=== PATIENT | female | born 1930 | race Asian ===

== ENCOUNTER 2016-10-19 02:46 | Inpatient (IN) | payer MEDICARE, MEDICAID ==
[~2016-10-19] VITALS: Ht 152.4 cm; Wt 61.3 kg
[2016-10-19] MEDS ORDERED: FEXO1TAB25 PO (03:07)
[2016-10-19] MEDS ORDERED: LISI-170 PO (03:07)
[2016-10-19] MEDS ORDERED: ATOR40TA78 PO (03:07)
[2016-10-19] MEDS ORDERED: INSU100V5 SQ-INSULIN (03:07)
[2016-10-19] MEDS ORDERED: CHOL400C PO (03:07)
[2016-10-19] MEDS ORDERED: ENALAPRILAT 1.25 MG/ML, 2ML ONE (03:15)
[2016-10-19 03:26] LABS: HEMOGLOBIN 12.7 g/dL (11.7-16.4)
[2016-10-19] MEDS ORDERED: ENALAPRILAT 1.25 MG/ML, 2ML IV ONE (03:30)
[2016-10-19 03:38] LABS: ASPARTATE AMINO TRANSFERASE 21 U/L (15-37); BLOOD UREA NITROGEN 20 mg/dL (7-18)
[2016-10-19 03:39] LABS: DAU SCREEN DISCLAIMER
[2016-10-19 03:44] LABS: IS PT STATUS REG ER OR PRE ER? YES
[2016-10-19] MEDS ORDERED: ACETAMINOPHEN 325 MG TABLET PO PRN (04:30)
[2016-10-19] MEDS ORDERED: ENALAPRILAT 1.25 MG/ML, 2ML IV PRN (04:30)
[2016-10-19] MEDS ORDERED: CEFTRIAXONE PMX 1GM/50ML 50 ML ONE (04:37)
[2016-10-19] MEDS ORDERED: NS + 20MEQ KCL 0 ML IV ONE (04:37)
[2016-10-19] MEDS ORDERED: NS + 40MEQ KCL 1,000 ML IV ONE (04:39)
[2016-10-19] MEDS: CEFTRIAXONE PMX 1GM/50ML 50 ML IV SCH (04:44)
[2016-10-19] MEDS: NS + 40MEQ KCL 1,000 ML IV SCH ×2 (04:48→20:45)
[2016-10-19 05:16] VITALS: BP 172/96
[2016-10-19] MEDS: ENOXAPARIN 40 MG/0.4 ML SQ SCH (05:56)
[2016-10-19] MEDS ORDERED: DEXTROSE 50%, 50ML SYRINGE IVPush PRN (06:00)
[2016-10-19] MEDS ORDERED: DEXTROSE 50%, 50ML SYRINGE IVPush ONE (06:00)
[2016-10-19] MEDS ORDERED: GLUCAGON 1 MG IM PRN (06:00)
[2016-10-19] MEDS ORDERED: DEXTROSE 4 GM TAB.CHEW PO PRN (06:00)
[2016-10-19 06:53] VITALS: BP 129/77
[2016-10-19] MEDS: SODIUM CHLORIDE FLUSH 10ML SYR IVF SCH ×2 (09:00→20:37)
[2016-10-19 09:29] LABS: IS PT STATUS REG ER OR PRE ER? NO
[2016-10-19] MEDS ORDERED: MAGNESIUM SULFATE PMX 4GM/100M 100 ML IV ONE (10:00)
[2016-10-19] MEDS ORDERED: GLIP5TAB10 PO (11:07)
[2016-10-19] MEDS ORDERED: TERI2.4P SQ (11:07)
[2016-10-19] MEDS ORDERED: ALBU0.63 NEB (11:07)
[2016-10-19] MEDS ORDERED: ATEN100T PO (11:07)
[2016-10-19] MEDS ORDERED: OXYB5TAB7 PO (11:07)
[2016-10-19] MEDS ORDERED: ACET325T26 PO (11:07)
[2016-10-19] MEDS ORDERED: METF850T2 PO (11:07)
[2016-10-19] MEDS: INSULIN ASPART 100 UNITS/ML, PEN SQ-INSULIN SCH ×3 (11:40→20:37)
[2016-10-19 12:33] VITALS: BP 159/82
[2016-10-19] MEDS: LISINOPRIL 20 MG TABLET PO SCH (12:34)
[2016-10-19 13:44] VITALS: BP 121/66
[2016-10-19 16:21] VITALS: BP 132/70
[2016-10-19] MEDS ORDERED: ALBUTEROL SULFATE 2.5 MG/3 ML NPPB PRN (17:00)
[2016-10-19 19:02] VITALS: BP 168/93
[2016-10-19] MEDS: ATORVASTATIN 40 MG TABLET PO SCH (20:37)
[2016-10-20 01:02] VITALS: BP 156/88
[2016-10-20] MEDS: ENOXAPARIN 40 MG/0.4 ML SQ SCH (04:25)
[2016-10-20] MEDS: CEFTRIAXONE PMX 1GM/50ML 50 ML IV SCH (04:25)
[2016-10-20 05:22] LABS: HEMOGLOBIN 11.7 g/dL (11.7-16.4)
[2016-10-20 05:29] LABS: BLOOD UREA NITROGEN 20 mg/dL (7-18)
[2016-10-20] MEDS: ATENOLOL 100 MG TABLET PO SCH (06:00)
[2016-10-20 07:42] VITALS: BP 134/77
[2016-10-20] MEDS: INSULIN ASPART 100 UNITS/ML, PEN SQ-INSULIN SCH ×4 (07:59→20:40)
[2016-10-20] MEDS: SODIUM CHLORIDE FLUSH 10ML SYR IVF SCH ×2 (08:14→20:38)
[2016-10-20] MEDS: LISINOPRIL 20 MG TABLET PO SCH (08:14)
[2016-10-20] MEDS: NS + 40MEQ KCL 1,000 ML IV SCH (10:47)
[2016-10-20 13:07] VITALS: BP 152/79
[2016-10-20 20:20] VITALS: BP 153/72
[2016-10-20] MEDS: ATORVASTATIN 40 MG TABLET PO SCH (20:39)
[2016-10-21 04:04] VITALS: BP 147/68
[2016-10-21] MEDS: ENOXAPARIN 40 MG/0.4 ML SQ SCH (04:30)
[2016-10-21] MEDS: CEFTRIAXONE PMX 1GM/50ML 50 ML IV SCH (04:30)
[2016-10-21 05:13] LABS: BLOOD UREA NITROGEN 23 mg/dL (7-18)
[2016-10-21 05:14] LABS: HEMOGLOBIN 10.6 g/dL (11.7-16.4)
[2016-10-21] MEDS: ATENOLOL 100 MG TABLET PO SCH (05:17)
[2016-10-21 06:59] VITALS: BP 156/74
[2016-10-21] MEDS: INSULIN ASPART 100 UNITS/ML, PEN SQ-INSULIN SCH ×4 (07:00→20:49)
[2016-10-21] MEDS: SODIUM CHLORIDE FLUSH 10ML SYR IVF SCH ×2 (09:00→20:49)
[2016-10-21] MEDS: LISINOPRIL 20 MG TABLET PO SCH (09:36)
[2016-10-21] MEDS ORDERED: MAGNESIUM SULFATE PMX 2GM/50ML 50 ML IV ONE (11:00)
[2016-10-21 14:32] VITALS: BP 159/81
[2016-10-21] MEDS ORDERED: CEFD300C2 PO (17:34)
[2016-10-21] MEDS ORDERED: LACT1CAP24 PO (17:34)
[2016-10-21 18:52] VITALS: BP 152/90
[2016-10-21] MEDS: ATORVASTATIN 40 MG TABLET PO SCH (20:48)
[2016-10-21] MEDS: metFORMIN 850 MG TABLET PO SCH (20:48)
[2016-10-22 02:38] VITALS: BP 155/78
[2016-10-22] MEDS: CEFTRIAXONE PMX 1GM/50ML 50 ML IV SCH (05:12)
[2016-10-22] MEDS: ENOXAPARIN 40 MG/0.4 ML SQ SCH (05:12)
[2016-10-22] MEDS: ATENOLOL 100 MG TABLET PO SCH (05:39)
[2016-10-22 09:30] VITALS: BP 155/96
[2016-10-22] MEDS: SODIUM CHLORIDE FLUSH 10ML SYR IVF SCH ×2 (09:35→20:26)
[2016-10-22] MEDS: MAGNESIUM OXIDE 400 MG TABLET PO SCH (09:35)
[2016-10-22] MEDS: metFORMIN 850 MG TABLET PO SCH ×3 (09:35→20:25)
[2016-10-22] MEDS: INSULIN ASPART 100 UNITS/ML, PEN SQ-INSULIN SCH ×4 (09:35→20:26)
[2016-10-22] MEDS: LISINOPRIL 20 MG TABLET PO SCH (09:36)
[2016-10-22 16:14] VITALS: BP 147/92
[2016-10-22 18:38] VITALS: BP 157/88
[2016-10-22] MEDS: ATORVASTATIN 40 MG TABLET PO SCH (20:25)
[2016-10-23 02:43] VITALS: BP_SYST 167; BP_SYST 183; BP_DIAS 85; BP_DIAS 89
[2016-10-23] MEDS: CEFTRIAXONE PMX 1GM/50ML 50 ML IV SCH (04:20)
[2016-10-23] MEDS: ATENOLOL 100 MG TABLET PO SCH (06:00)
[2016-10-23] MEDS: ENOXAPARIN 40 MG/0.4 ML SQ SCH (06:07)
[2016-10-23] MEDS: INSULIN ASPART 100 UNITS/ML, PEN SQ-INSULIN SCH ×2 (07:00→11:00)
[2016-10-23 07:01] VITALS: BP 176/83
[2016-10-23] MEDS: metFORMIN 850 MG TABLET PO SCH (08:20)
[2016-10-23] MEDS: MAGNESIUM OXIDE 400 MG TABLET PO SCH (08:20)
[2016-10-23] MEDS: SODIUM CHLORIDE FLUSH 10ML SYR IVF SCH (08:20)
[2016-10-23] MEDS: LISINOPRIL 20 MG TABLET PO SCH (08:20)
[2016-10-23 13:48] VITALS: BP 165/85
[2016-10-23] MEDS ORDERED: LISI-170 PO (15:45)
[2016-10-23] MEDS ORDERED: LISINOPRIL 20 MG TABLET PO SCH (21:00)
== END 2016-10-23 16:22 | DRG 637 ==
LOC: ED 04:40 → EDIP 04:42 → 4WST 05:05
PROVIDERS: ADMIT Internal Medicine; ATTEND Internal Medicine
PROC: 0T9B70Z Drainage of Bladder with Drainage Device, Via Natural or Artificial Opening (ICD-10-PCS; principal; 2016-10-19)
DX: E11.649 Type 2 diabetes mellitus with hypoglycemia without coma (principal); G93.41 Metabolic encephalopathy; N39.0 Urinary tract infection, site not specified; N12 Tubulo-interstitial nephritis, not specified as acute or chronic; E87.6 Hypokalemia; I16.0 Hypertensive urgency; B96.20 Unspecified Escherichia coli [E. coli] as the cause of diseases classified elsewhere; E78.5 Hyperlipidemia, unspecified; E83.42 Hypomagnesemia; I12.9 Hypertensive chronic kidney disease with stage 1 through stage 4 chronic kidney disease, or unspecified chronic kidney disease; J44.9 Chronic obstructive pulmonary disease, unspecified; J45.909 Unspecified asthma, uncomplicated; E11.22 Type 2 diabetes mellitus with diabetic chronic kidney disease; N18.2 Chronic kidney disease, stage 2 (mild); N32.81 Overactive bladder; Z79.4 Long term (current) use of insulin; Z79.899 Other long term (current) drug therapy; Z86.73 Personal history of transient ischemic attack (TIA), and cerebral infarction without residual deficits; Z87.442 Personal history of urinary calculi
CPT/HCPCS: 36415; 70450; 71010; 80048; 80053; 80307; 81001; 82947; 82962; 83735; 84100; 84484; 85025; 87077; 87086; 87186; 93005; 96374; 96375; J0696; J1650; J1815; J3475; J3480

== ENCOUNTER 2016-11-09 14:37 | Inpatient (IN) | payer MEDICARE, MEDICAID ==
[~2016-11-09] VITALS: Ht 144.8 cm; Wt 58.2 kg
[~2016-11-09 14:37] MED LIST: ACET325T26 PO; ALBU0.63 NEB; ATEN100T PO; ATOR40TA78 PO; CEFD300C37 PO; CHOL400C PO; FEXO1TAB25 PO; GLIP5TAB10 PO; INSU100V5 SQ-INSULIN; LACT1CAP24 PO; LISI-170 PO; METF850T2 PO; OXYB5TAB7 PO; TERI2.4P SQ
[2016-11-09] MEDS ORDERED: SODIUM CHLORIDE 0.9% 1,000 ML IV ONE ×2 (14:48)
[2016-11-09] MEDS ORDERED: SODIUM CHLORIDE FLUSH 10ML SYR IVF ONE (15:00)
[2016-11-09] MEDS ORDERED: INSULIN REGULAR 100 UNITS/ML, 3ML VIAL IV ONE (15:00)
[2016-11-09 15:22] LABS: BLOOD UREA NITROGEN 11 mg/dL (7-18)
[2016-11-09] MEDS ORDERED: INSULIN REGULAR 100 UNITS/ML, 3ML VIAL ONE (15:52)
[2016-11-09] MEDS ORDERED: SODIUM CHLORIDE 0.9% 1,000ML IVBOLUS ONE (16:00)
[2016-11-09] MEDS ORDERED: CEFTRIAXONE PMX 1GM/50ML 50 ML IV ONE (17:30)
[2016-11-09] MEDS ORDERED: INSULIN REGULAR 100 UNITS/ML, 3ML VIAL SQ-INSULIN SCH (17:30)
[2016-11-09] MEDS ORDERED: CEFTRIAXONE PMX 1GM/50ML 50 ML ONE (17:38)
[2016-11-09] MEDS: CEFTRIAXONE PMX 1GM/50ML 50 ML IV SCH (17:48)
[2016-11-09] MEDS ORDERED: ACETAMINOPHEN 325 MG TABLET PO PRN (18:00)
[2016-11-09] MEDS ORDERED: BISACODYL 10 MG SUPP PR PRN (18:00)
[2016-11-09] MEDS ORDERED: MAGNESIUM SULFATE PMX 2GM/50ML 50 ML IV ONE (18:00)
[2016-11-09] MEDS ORDERED: ONDANSETRON 2MG/ML, 2ML IVP PRN (18:00)
[2016-11-09] MEDS ORDERED: POLYETHYLENE GLYCOL 17 GM PACKET PO PRN (18:00)
[2016-11-09 19:20] VITALS: BP 197/91
[2016-11-09] MEDS: SODIUM CHLORIDE 0.9% 1,000 ML IV SCH (19:52)
[2016-11-09] MEDS: HEPARIN 5,000 UNITS/ML, 1ML SQ SCH (19:52)
[2016-11-09] MEDS: OXYBUTYNIN CHLORIDE 5 MG TABLET PO SCH (21:00)
[2016-11-09] MEDS ORDERED: metFORMIN 850 MG TABLET PO SCH (21:00)
[2016-11-09] MEDS: ATORVASTATIN 40 MG TABLET PO SCH (21:00)
[2016-11-09] MEDS: CHOLECALCIFEROL 400 UNITS TABLET PO SCH (21:00)
[2016-11-09] MEDS ORDERED: LISINOPRIL 20 MG TABLET PO SCH (21:00)
[2016-11-09] MEDS: INSULIN REGULAR 100 UNITS/ML, 3ML VIAL SQ-INSULIN SCH (21:00)
[2016-11-09 23:23] VITALS: BP 131/66
[2016-11-10] MEDS ORDERED: OMNIPAQUE 350 MG/ML, 75ML BOTTLE ONE (00:24)
[2016-11-10 01:31] VITALS: BP 155/69
[2016-11-10] MEDS: HEPARIN 5,000 UNITS/ML, 1ML SQ SCH ×3 (04:54→19:53)
[2016-11-10 06:00] LABS: BLOOD UREA NITROGEN 9 mg/dL (7-18)
[2016-11-10 06:10] LABS: ASPARTATE AMINO TRANSFERASE 18 U/L (15-37)
[2016-11-10] MEDS: INSULIN REGULAR 100 UNITS/ML, 3ML VIAL SQ-INSULIN SCH ×4 (07:00→19:56)
[2016-11-10] MEDS: LISINOPRIL 20 MG TABLET PO SCH (08:13)
[2016-11-10] MEDS: SENNA/DOCUSATE TABLET PO SCH (08:13)
[2016-11-10] MEDS: ATENOLOL 100 MG TABLET PO SCH (08:14)
[2016-11-10 08:19] VITALS: BP 157/70
[2016-11-10] MEDS ORDERED: ENALAPRILAT 1.25 MG/ML, 2ML IV PRN (09:30)
[2016-11-10] MEDS: SODIUM CHLORIDE 0.9% 1,000 ML IV SCH (12:43)
[2016-11-10 15:25] VITALS: BP 152/76
[2016-11-10] MEDS: CEFTRIAXONE PMX 1GM/50ML 50 ML IV SCH (18:30)
[2016-11-10 18:44] VITALS: BP 188/79
[2016-11-10] MEDS: ATORVASTATIN 40 MG TABLET PO SCH (19:53)
[2016-11-10] MEDS: OXYBUTYNIN CHLORIDE 5 MG TABLET PO SCH (19:53)
[2016-11-10] MEDS: CHOLECALCIFEROL 400 UNITS TABLET PO SCH (19:54)
[2016-11-11 00:51] VITALS: BP 151/87
[2016-11-11] MEDS: SODIUM CHLORIDE 0.9% 1,000 ML IV SCH ×3 (00:55→21:34)
[2016-11-11] MEDS: HEPARIN 5,000 UNITS/ML, 1ML SQ SCH ×3 (04:00→20:08)
[2016-11-11 06:09] LABS: BLOOD UREA NITROGEN 11 mg/dL (7-18)
[2016-11-11] MEDS: INSULIN REGULAR 100 UNITS/ML, 3ML VIAL SQ-INSULIN SCH ×4 (07:00→20:07)
[2016-11-11 07:23] VITALS: BP 105/67
[2016-11-11] MEDS: ATENOLOL 100 MG TABLET PO SCH (09:00)
[2016-11-11] MEDS: SENNA/DOCUSATE TABLET PO SCH (09:00)
[2016-11-11] MEDS: LISINOPRIL 20 MG TABLET PO SCH (09:00)
[2016-11-11 14:29] VITALS: BP 114/70
[2016-11-11] MEDS: CEFTRIAXONE PMX 1GM/50ML 50 ML IV SCH (18:05)
[2016-11-11 19:35] VITALS: BP 122/75
[2016-11-11] MEDS: OXYBUTYNIN CHLORIDE 5 MG TABLET PO SCH (20:08)
[2016-11-11] MEDS: CHOLECALCIFEROL 400 UNITS TABLET PO SCH (20:08)
[2016-11-11] MEDS: ATORVASTATIN 40 MG TABLET PO SCH (20:08)
[2016-11-12 02:41] VITALS: BP 134/76
[2016-11-12] MEDS: HEPARIN 5,000 UNITS/ML, 1ML SQ SCH ×3 (05:03→20:11)
[2016-11-12 06:21] LABS: BLOOD UREA NITROGEN 13 mg/dL (7-18)
[2016-11-12] MEDS: INSULIN REGULAR 100 UNITS/ML, 3ML VIAL SQ-INSULIN SCH ×4 (07:00→20:12)
[2016-11-12 07:27] VITALS: BP 158/91
[2016-11-12] MEDS: ATENOLOL 100 MG TABLET PO SCH (07:59)
[2016-11-12] MEDS: LISINOPRIL 20 MG TABLET PO SCH (07:59)
[2016-11-12] MEDS: SENNA/DOCUSATE TABLET PO SCH (07:59)
[2016-11-12] MEDS: POTASSIUM CHLORIDE 20 MEQ in SODIUM CHLORIDE 0.45% 1,000 ML IV SCH ×2 (08:51→22:37)
[2016-11-12 13:37] VITALS: BP 123/74
[2016-11-12] MEDS: CEFTRIAXONE PMX 1GM/50ML 50 ML IV SCH (18:05)
[2016-11-12 19:46] VITALS: BP 155/79
[2016-11-12] MEDS: CHOLECALCIFEROL 400 UNITS TABLET PO SCH (20:11)
[2016-11-12] MEDS: OXYBUTYNIN CHLORIDE 5 MG TABLET PO SCH (20:11)
[2016-11-12] MEDS: ATORVASTATIN 40 MG TABLET PO SCH (20:11)
[2016-11-13 00:40] VITALS: BP 181/89
[2016-11-13] MEDS: HEPARIN 5,000 UNITS/ML, 1ML SQ SCH ×3 (05:10→20:58)
[2016-11-13 07:46] VITALS: BP 186/93
[2016-11-13] MEDS: LISINOPRIL 20 MG TABLET PO SCH (08:31)
[2016-11-13] MEDS: SENNA/DOCUSATE TABLET PO SCH (08:31)
[2016-11-13] MEDS: hydrALAzine 20 MG/ML, 1ML IV PRN (08:32)
[2016-11-13] MEDS: INSULIN REGULAR 100 UNITS/ML, 3ML VIAL SQ-INSULIN SCH ×4 (08:54→20:58)
[2016-11-13] MEDS ORDERED: LISI-170 PO (09:14)
[2016-11-13] MEDS ORDERED: CEFD300C37 PO (09:14)
[2016-11-13 09:35] VITALS: BP 145/71
[2016-11-13] MEDS: ATENOLOL 100 MG TABLET PO SCH (09:54)
[2016-11-13 13:22] VITALS: BP 170/85
[2016-11-13] MEDS: CEFTRIAXONE PMX 1GM/50ML 50 ML IV SCH (17:27)
[2016-11-13 19:50] VITALS: BP 153/83
[2016-11-13] MEDS: ATORVASTATIN 40 MG TABLET PO SCH (20:59)
[2016-11-13] MEDS: OXYBUTYNIN CHLORIDE 5 MG TABLET PO SCH (20:59)
[2016-11-13] MEDS: CHOLECALCIFEROL 400 UNITS TABLET PO SCH (20:59)
[2016-11-14 02:14] VITALS: BP 154/70
[2016-11-14] MEDS: HEPARIN 5,000 UNITS/ML, 1ML SQ SCH ×3 (05:02→20:32)
[2016-11-14 05:07] LABS: BLOOD UREA NITROGEN 8 mg/dL (7-18)
[2016-11-14] MEDS: INSULIN REGULAR 100 UNITS/ML, 3ML VIAL SQ-INSULIN SCH ×4 (07:00→20:31)
[2016-11-14 07:55] VITALS: BP 165/87
[2016-11-14] MEDS ORDERED: MAGNESIUM SULFATE PMX 2GM/50ML 50 ML IV ONE (08:00)
[2016-11-14] MEDS: ATENOLOL 100 MG TABLET PO SCH (08:01)
[2016-11-14] MEDS: POTASSIUM CHLORIDE 20 MEQ TAB.ER.PRT PO SCH ×3 (08:01→20:33)
[2016-11-14] MEDS: SENNA/DOCUSATE TABLET PO SCH (08:01)
[2016-11-14] MEDS: LISINOPRIL 20 MG TABLET PO SCH (08:02)
[2016-11-14 13:04] VITALS: BP 138/75
[2016-11-14] MEDS: CEFTRIAXONE PMX 1GM/50ML 50 ML IV SCH (18:30)
[2016-11-14] MEDS: OXYBUTYNIN CHLORIDE 5 MG TABLET PO SCH (20:32)
[2016-11-14] MEDS: CHOLECALCIFEROL 400 UNITS TABLET PO SCH (20:32)
[2016-11-14] MEDS: ATORVASTATIN 40 MG TABLET PO SCH (20:33)
[2016-11-14 20:44] VITALS: BP 166/78
[2016-11-15 01:43] VITALS: BP 153/82
[2016-11-15] MEDS: HEPARIN 5,000 UNITS/ML, 1ML SQ SCH ×3 (04:34→21:10)
[2016-11-15 06:26] LABS: BLOOD UREA NITROGEN 7 mg/dL (7-18)
[2016-11-15 06:29] VITALS: BP 182/85
[2016-11-15] MEDS: hydrALAzine 20 MG/ML, 1ML IV PRN (06:40)
[2016-11-15] MEDS: INSULIN REGULAR 100 UNITS/ML, 3ML VIAL SQ-INSULIN SCH ×4 (07:00→21:18)
[2016-11-15] MEDS: LISINOPRIL 20 MG TABLET PO SCH (08:49)
[2016-11-15] MEDS: AMLODIPINE 5 MG TABLET PO SCH (08:49)
[2016-11-15] MEDS: SENNA/DOCUSATE TABLET PO SCH (08:53)
[2016-11-15 13:16] VITALS: BP 118/72
[2016-11-15] MEDS: CEFTRIAXONE PMX 1GM/50ML 50 ML IV SCH (18:06)
[2016-11-15 19:50] VITALS: BP 124/78
[2016-11-15] MEDS: ATORVASTATIN 40 MG TABLET PO SCH (21:09)
[2016-11-15] MEDS: CHOLECALCIFEROL 400 UNITS TABLET PO SCH (21:09)
[2016-11-15] MEDS: OXYBUTYNIN CHLORIDE 5 MG TABLET PO SCH (21:10)
[2016-11-16 01:38] VITALS: BP 118/72
[2016-11-16] MEDS: HEPARIN 5,000 UNITS/ML, 1ML SQ SCH ×2 (04:33→12:11)
[2016-11-16] MEDS: INSULIN REGULAR 100 UNITS/ML, 3ML VIAL SQ-INSULIN SCH ×2 (07:00→12:09)
[2016-11-16 07:21] VITALS: BP 155/63
[2016-11-16] MEDS: SENNA/DOCUSATE TABLET PO SCH (09:00)
[2016-11-16] MEDS: AMLODIPINE 5 MG TABLET PO SCH (09:58)
[2016-11-16] MEDS: LISINOPRIL 20 MG TABLET PO SCH (09:58)
[2016-11-16 14:30] VITALS: BP 152/87
== END 2016-11-16 16:11 | DRG 690 ==
LOC: ED 16:28 → EDIP 17:06 → 3NE 18:26
PROVIDERS: ADMIT Hospitalist; ATTEND Hospitalist
PROC: 0T9B70Z Drainage of Bladder with Drainage Device, Via Natural or Artificial Opening (ICD-10-PCS; principal; 2016-11-09)
DX: N39.0 Urinary tract infection, site not specified (principal); E44.1 Mild protein-calorie malnutrition; E87.2 Acidosis; C34.91 Malignant neoplasm of unspecified part of right bronchus or lung; I10 Essential (primary) hypertension; N13.6 Pyonephrosis; N20.0 Calculus of kidney; B96.20 Unspecified Escherichia coli [E. coli] as the cause of diseases classified elsewhere; R13.10 Dysphagia, unspecified; Z68.27 Body mass index [BMI] 27.0-27.9, adult; E11.65 Type 2 diabetes mellitus with hyperglycemia; E78.5 Hyperlipidemia, unspecified; E83.42 Hypomagnesemia; E87.6 Hypokalemia; J44.9 Chronic obstructive pulmonary disease, unspecified; Z79.4 Long term (current) use of insulin; Z86.73 Personal history of transient ischemic attack (TIA), and cerebral infarction without residual deficits; Z87.442 Personal history of urinary calculi; Z91.81 History of falling; J98.09 Other diseases of bronchus, not elsewhere classified; J98.4 Other disorders of lung
CPT/HCPCS: 36415; 51701; 71010; 71260; 74176; 80048; 80053; 81001; 82010; 82040; 82962; 83036; 83605; 83735; 85025; 87040; 87077; 87081; 87086; 87186; 87324; 87880; 93005; 96361; 96365; 96375; J0696; J1644; J1815; J3480; Q9967; J0360; J3475; J7030; P9612

== ENCOUNTER → 2017-03-02 | Outpatient (CLI) | payer MEDICARE, MEDICAID ==
[~2017-03-02] MED LIST changes: +OMNIPAQUE 350 MG/ML, 75ML BOTTLE ONE
== END | disposition home or self-care (01) ==
LOC: CFH 09:41
PROVIDERS: ATTEND Internal Medicine
DX: J84.10 Pulmonary fibrosis, unspecified (principal); D3A.090 Benign carcinoid tumor of the bronchus and lung; N13.30 Unspecified hydronephrosis; N20.0 Calculus of kidney
CPT/HCPCS: 71260; 82565; Q9967

== ENCOUNTER 2019-12-08 08:34 | Outpatient (CLI) | payer MEDICARE, MEDICAID ==
[~2019-12-08 08:34] MED LIST changes: +METF850T10 PO; -METF850T2 PO; -OMNIPAQUE 350 MG/ML, 75ML BOTTLE ONE; +OXYB5TAB10 PO; -OXYB5TAB7 PO
== END 2019-12-08 23:59 | disposition home or self-care (01) ==
LOC: RAD 08:34
PROVIDERS: ATTEND Internal Medicine Geriatric Medicine
DX: Z02.9 Encounter for administrative examinations, unspecified (principal)

== ENCOUNTER 2019-12-08 09:40 | Emergency (ER) | payer MEDICARE, MEDICAID ==
[~2019-12-08] VITALS: Ht 160 cm; Wt 62.0 kg
[2019-12-08 09:43] VITALS: BP 117/64
[2019-12-08 11:52] LABS: BASOPHILS # (AUTO) 0.04 x10^3/uL (0-0.1); BASOPHILS % (AUTO) 1 % (0-1); EOSINOPHILS % (AUTO) 2 % (1-7); LYMPHOCYTES # (AUTO) 1.74 x10^3/uL (1-3.4); LYMPHOCYTES % (AUTO) 29 % (22-44); MD NO; MEAN CORPUSCULAR HGB CONC 33.2 g/dL (32.4-35.8); MEAN CORPUSCULAR VOLUME 96.4 fL (80-100); MEAN PLATELET VOLUME 8.4 fL (7.4-10.4); MONOCYTES # (AUTO) 0.44 x10^3/uL (0.2-0.8); MONOCYTES % (AUTO) 8 % (2-9); NEUTROPHILS # (AUTO) 3.62 x10^3/uL (1.8-6.8); NEUTROPHILS % (AUTO) 61 % (42-75); PLATELET COUNT 367 x10^3/uL (130-400); RED BLOOD COUNT 3.76 x10^6/uL (3.82-5.3); RED CELL DISTRIBUTION WIDTH 12.8 % (9.6-15.2)
[2019-12-08 12:03] LABS: ALBUMIN 2.9 g/dL (3.4-5.0); ANION GAP 8 mmol/L (5-15); CALCIUM 8.6 mg/dL (8.5-10.1); CHLORIDE 107 mmol/L (98-107)
--- NOTE | 2019-12-08 12:03 | NUR ---
RECEIVED REPORT FROM SHAGUFTA KRAUSE. ASSUMING CARE AT THIS TIME.
--- NOTE | 2019-12-08 12:04 | NUR ---
STATES PT CXR IS UNCHANGED FROM LAST FEW YEARS OF CXR.
[2019-12-08 12:08] LABS: ALANINE AMINOTRANSFERASE 24 U/L (12-78); ALKALINE PHOSPHATASE 88 U/L (45-117); BILIRUBIN,TOTAL 0.6 mg/dL (0.2-1.0); CREATININE 1.24 mg/dL (0.55-1.02)
--- NOTE | 2019-12-08 12:31 | NUR ---
PT AMBULATING BACK TO ROOM FROM RESTROOM, WITH STEADY GAIT PUSHING WC, WITH SON. SON GIVEN DC PAPERWORK. REGISTRATION AT BEDSIDE. SON TO GET PT DRESSED AND WILL TAKE PT HOME.
[2019-12-11 11:30] LABS: QUANTIFERON TB Ag1-NIL 0.51 (0.000-0.000)
== END 2019-12-08 13:15 | disposition home or self-care (01) ==
LOC: ED 12:31
DX: R93.89 Abnormal findings on diagnostic imaging of other specified body structures (principal); E78.5 Hyperlipidemia, unspecified; I10 Essential (primary) hypertension; J44.9 Chronic obstructive pulmonary disease, unspecified; E11.9 Type 2 diabetes mellitus without complications; Z86.73 Personal history of transient ischemic attack (TIA), and cerebral infarction without residual deficits
CPT/HCPCS: 36415; 71045; 80053; 85025; 86480; 99284